=== PATIENT | female | born 1990 | race Caucasian/White ===

== ENCOUNTER 2016-06-29 06:00 | Inpatient (IN) ==
[2016-06-29] MEDS ORDERED: Metoclopramide 10 MG/2 ML VIAL IVP PRN (06:48)
[2016-06-29] MEDS ORDERED: Famotidine 20 MG/2 ML VIAL IVP PRN (06:48)
[2016-06-29] MEDS ORDERED: Naloxone 0.4 MG/ML INJ IVP PRN (06:48)
[2016-06-29] MEDS ORDERED: Ringers Solution, Lactated 1,000 ML IVC SCH (07:00)
[2016-06-29 07:27] LABS: Basophils # 0.1 K/mcL (0.0-0.2); Basophils % 0.4 %; Eosinophils # 0.1 K/mcL (0.0-0.6); Eosinophils % 0.9 %; Hematocrit 35.2 % (35.3-44.9); Hemoglobin 11.9 g/dL (11.5-15.4); Immature Granulocytes % 0.9 % (0-4); Lymphocytes # 2.3 K/mcL (0.6-4.6); Lymphocytes % 16.4 %; Mean Corpuscular HGB Conc 33.8 g/dL (31.6-35.5); Mean Corpuscular Hemoglobin 30.4 pg (28.0-33.3); Monocytes # 0.9 K/mcL (0.0-1.3); Monocytes % 6.5 %; Neutrophils # 10.4 K/mcL (1.6-8.9); Platelet Count 197 K/mcL (140-400); Red Blood Count 3.91 M/mcL (3.82-4.97); Red Cell Distribution Width 13.1 % (11.5-14.5); Segmented Neutrophils % 74.9 %
[2016-06-29] MEDS ORDERED: miSOPROStol 25 MCG TABLET VG SCH (08:00)
--- NOTE | 2016-06-29 08:06 | OB/GYN History & Physical ---
Date of Encounter: 06/29/16 Time of Encounter: 08:04 Assessment and Plan (1) 39 weeks gestation of Current visit: Yes Status: Acute Admit for IOL 25mcg Cytotec vaginally placed. (2) PUPP (pruritic urticarial papules and plaques of ) Current visit: Yes Status: Acute Patient to be induced. History of Present Illness Chief complaint: IOL HPI: Ms. Estevez is a 26 year old female at 39w1d presents to labor and delivery for induction of labor. Patient's was complicated by PUPPS. Patient reports +FM, denies LOF or vaginal bleeding. Patient reports irregular contractions. Blood type: A+, Rubella: Immune, Hep B: Negative, GBS: Negative. Past Med Surg Social Fam HX - Past Medical History Source: patient Medical history: thyroid disease Psychiatric history: no psych history - Past Surgical History Surgical History: other - Social History Smoking Status: Former smoker Smokeless Tobacco Status: No Alcohol use: none Drug use: none Occupational status: employed Current living situation: Home - Independent Activity Level: Independent ambulation Recent Out of Country Travel Within the Last 8 Weeks: No Exposure or Possible Exposure to Illness During Travel: No - Family History Mother Living Status: Still Living Hx Family Cardiac Disorders: No Hx Family Respiratory Disorders: No Hx Family Cancer: No Hx Family GI Disorders: No Hx Family Genitourinary Disorders: No Hx Family Endocrine Disorder: No Hx Family Musculoskeletal Disorders: No Hx Family Neuromuscular Disorders: No Hx Family Neurologic Disorders: No Hx Family HEENT Disorders: No Hx Family Autoimmune Disorders: No Hx Family Reproductive Disorders: No Hx Family Psychosocial Disorders: No Hx Family Medical Disorders: No Obstetrical History - Pregnancies : 1 Para: 0 Term: 0 : 0 Ab's: 0 Livin Medications and Allergies Hydrocodone/Acetaminophen [[place] 5-325 Tablet] 1 tab PO Q4H PRN #12 tab [Rx] Ibuprofen [Motrin] 600 mg PO QID #20 tab 05/31/15 [Rx] Allergies No Known Allergies Allergy (Verified 05/31/15 18:07) Review of System OB - Constitutional Constitutional ROS IM: no fever(s), no headache(s), no weakness - Cardiovascular Cardiovascular: no chest pain, no edema, no palpitations, no syncope - Respiratory Respiratory: no cough, no dyspnea - Gastrointestinal Gastrointestinal: no abdominal pain, no constipation, no diarrhea, no dyspepsia , no heartburn, no nausea, no vomiting - Genitourinary Genitourinary: no abnormal vaginal bleeding, no dysuria, no flank pain, no urinary frequency, no urinary urgency, no vaginal discharge, no vaginal odor, no vaginal pruritis Exam - Constitutional Constitutional: well developed, well nourished, no acute distress, average body habitus - HEENT HEENT: Normocephaly, Mucus Membranes Moist - Neck Neck exam: full ROM, supple - Lungs Respiratory exam: CTAB - Cardiovascular Cardiovascular exam: RRR, +S1, +S2 - Breasts Breast: bilateral: normal - Abdomen Abdomen: Present: bowel sounds normal, gravid, non tender - Extremities Extremities exam: full ROM, normal capillary refill Deep Tendon Reflex Grade: 2+ Normal - Vagina Vagina: Present: normal moisture - Cervix Dilation: 3 Effacement: 80 Station: -2 - Uterus Uterus exam: Present: normal size, normal contour - Anus/Rectum Anus/Rectum: Present: normal perianal skin (FHR 125 bpm moderate variability + 15x15 accels no decels noted. Cat. 1 tracing. ) Results Result Diagrams: 06/29/16 06:54 Abnormal lab results WBC 13.9 K/mcL (4.3-11.1) H 06/29/16 06:54 Hct 35.2 % (35.3-44.9) L 06/29/16 06:54 Neutrophils # 10.4 K/mcL (1.6-8.9) H 06/29/16 06:54 All other labs normal. - VTE Reasons for not Prescribing Prophylaxis: Treatment not Indicated - Low risk for VTE
--- NOTE | 2016-06-29 08:57 | Anesthesia Evaluation PreOp ---
Date of Encounter: 06/29/16 Time of Encounter: 08:55 - Past History Planned Operation: BELINDA Cardiac History: Denies any Significant Hx Pulmonary History: Former smoker (prepregnancy smoker 9yrs at 1/2pk/day) PROGRAM THERAPIST History: Denies Any Significant HX Other Medical History: Thyroid (thyroid goiter and partial thyroidectomy) Anesthesia History: No Prior Anesthetic Complications, Past Anesthesia (partial thyroidectomy) : Yes Alcohol Use: none Drug use: none Medications and Allergies Hydrocodone/Acetaminophen [[place] 5-325 Tablet] 1 tab PO Q4H PRN #12 tab [Rx] Ibuprofen [Motrin] 600 mg PO QID #20 tab 05/31/15 [Rx] Allergies No Known Allergies Allergy (Verified 05/31/15 18:07) - Meds/Allergy Pre-op Review Medications Reviewed: Yes Allergies Reviewed: No Beta Blockers on Current Med List: No Anesthesia Results - Labs 06/29/16 06:54 Anesthesia Exam 141/91, 93,16,99% Height: 5'8" Weight: 104Kg NPO (# of Hours): 4 Pain Scale: 1 Pain Scale Used: Numeric (1 - 10) - HEENT Pupil (Motor): Pupils equal, EOMI Mallampati: III Teeth: Normal Oral Opening: Greater than 3 - PROGRAM THERAPIST LOC: Oriented PROGRAM THERAPIST Motor: Normal RUE, Normal LUE, Normal RLE, Normal LLE, Normal Face PROGRAM THERAPIST Sensory: Normal: RUE, LUE, RLE, LLE, Face - Cardiac Rhythm: Regular Murmur: None - Pulmonary Respiratory Effort: Symmetrical Anesthesia Assess/Plan ASA Score: 2 Modified Lashawn Scale for Level of Consciousness: Cooperative, oriented, and tranquil Anesthetic Plan: Regional Monitoring Plan: Standard Monitors
--- NOTE | 2016-06-29 10:53 | OB Labor Progress Note ---
Date of Encounter: 06/29/16 Time of Encounter: 10:52 Labor Progress Note - Subjective Subjective: Pt with mild discomfort. - Cervix Cervix: 3/80/-2 - Heart Tones Heart Tones: Category I - [place]: 1.5-2.5 minutes - Interventions Interventions: AROM for small amount clear fluid. - Plan Plan: Continue to monitor. Anticipate .
[2016-06-29] MEDS ORDERED: Bupivacaine-MPF 0.25% 10 ML VIAL ONE (14:47)
[2016-06-29] MEDS ORDERED: Epidural Premix (fent/bupiv) 110 ML EP ONE ×2 (14:47→22:11)
[2016-06-29] MEDS ORDERED: *HR* FentaNYL (PF) 100 MCG/2 ML VIAL ONE (14:48)
--- NOTE | 2016-06-29 15:37 | Anesthesia Procedures ---
Date of Encounter: 06/29/16 Time of Encounter: 14:51 Procedures: Anesthesia - Epidural/Spinal Patient ID/Chart reviewed: Yes Patient examined: Yes OB Eval: Gestational age: 39 OB Eval: : 1 OB Eval: Hx Para: 0 OB Eval: Dilated at (cm): 5 OB Eval: Contractions: Non-stressed pattern Consent Obtained: Yes Supplemental Oxygen: None/Room Air Site Prep: Aseptic Technique, Sterile prep and drape, Povidone-Iodine 1% Patient position: upright Local Anesthetic: Lidocaine 1% Amount of Local Anesthetic used: 5 Touhy Needle Gauge: 18 Touhy Needle Depth (cm): 6 Catheter Depth at Skin (cm): 18 Test Dose (1.5% Lido + Epi): Volume given (mls): 3 Test Dose Result: Negative Loading Dose: 0.25% Marcaine (mls): 8 Loading Dose: Fentanyl (mcg): 100 Loading Dose Administered: Thru Catheter Infusion Med: 0.125% Bupivacaine w/ 2 mcg/ml Fentanyl Infusion Rate (mls/hr): [address]: Tegaderm, Tape Interspace Used: L3-L4 Loss of Resistance (SHRADDHA): Yes Blood: No CSF: No Paresthesia: No Vitals + FHT's: 3 Vital Signs Time 1455 1500 1505 1510 1515 1520 1525 1530 BP 140/89 140/91 142/65 141/79 143/74 136/73 128/55 132/60 Pulse 92 93 91 92 96 98 88 86 FHTs 140 140 140 140 140 140 140 140
--- NOTE | 2016-06-29 16:37 | OB Labor Progress Note ---
Date of Encounter: 06/29/16 Time of Encounter: 16:15 Labor Progress Note - Subjective Subjective: Pt comfortable with epidural - Cervix Cervix: 5/80/-1 - Heart Tones Heart Tones: Category I - [place]: 2-3 minutes - Interventions Interventions: IUPC placed. - Plan Plan: Will begin pitocin augmentation. Anticipate .
[2016-06-29] MEDS ORDERED: Oxytocin 20 units/ LR 1000 mL 20 UNIT/1,000 ML BAG IVC SCH (16:45)
--- NOTE | 2016-06-29 23:01 | OB Labor Progress Note ---
Date of Encounter: 06/29/16 Time of Encounter: 22:58 Labor Progress Note - Subjective Subjective: Patient resting comfortably with epidural in place. Pitocin on 12 milliunits. - Cervix Cervix: 8/100/0 - Heart Tones Heart Tones: 135 bpm moderate variability +15x15 accels early decels noted. - Norene Norene: 1-3 min apart - Interventions Interventions: SVE, repositioned. - Plan Plan: Continue labor management.
[2016-06-30] MEDS ORDERED: Lidocaine 1% 20 ML MDV ONE (02:56)
--- NOTE | 2016-06-30 03:52 | OB/GYN Procedure Note ---
Delivery - Delivery Date: 06/30/16 Provider: Anneliese Champion Intrapartum events: none Delivery induction: misoprostol Delivery augmentation: rupture of membranes, pitocin Delivery monitor: external FHT, external uterine, internal FHT, internal uterine Anesthesia: local, epidural Estimated Blood Loss: 300 - Infant (s) Infant A Delivery Date: 06/30/16 Infant Delivery Time: 02:52 Presentation: vertex Position: OA Gender: Male Viability: Viable Pounds: 7 Ounces: 11 Weight Gram: 3.48 kg at 1 minute: 7 at 5 mins: 9 Shoulder Dystocia: not encountered Specimens collected: cord blood Placenta: spontaneous, uterine exploration Cord: 3 umbilical vessels - Repair Episiotomy: none Laceration Description: Perineal - 2nd Degree, Labial - Complications Delivery complications: none Delivery comments: Called to LDR patient beginning to feel pressure. Patient was complete and began pushing. Delivery of viable male infant. Infant delivered OA with left arm across the neck. was placed on maternal abdomen cord was clamped and cut. taken to the warmer by nursery staff and quickly returned to mother for skin to skin. Left labial laceration was repaired with 4-0 vicryl. 1% lidocaine was used for anesthesia for 2nd degree perineal laceration. Perineal laceration was repaired with 3-0 vicryl. Patient tolerated well. Placenta delivered spontaneously. Both mother and baby are stable in LDR. - Disposition Mom disposition: stable in LDR [place] disposition: stable in LDR
[2016-06-30] MEDS ORDERED: Hydrocortisone 1% OINT 28 GM TUBE TP PRN (04:35)
[2016-06-30] MEDS ORDERED: Acetaminophen 325 MG TABLET PO PRN (04:35)
[2016-06-30] MEDS ORDERED: Lanolin 7 G OINT...G. TP PRN (04:35)
[2016-06-30] MEDS ORDERED: *HR* HYDROcodone/Acet 5/325 mg TABLET PO PRN (04:35)
[2016-06-30] MEDS ORDERED: Benzocaine/Menthol 56 GM AEROSOL SPRAY TP PRN (04:35)
[2016-06-30] MEDS ORDERED: Oxytocin 20 units/ LR 1000 mL 20 UNIT/1,000 ML BAG IVC ONE (04:35)
[2016-06-30] MEDS ORDERED: Oxytocin 20 units/ LR 1000 mL 20 UNIT/1,000 ML BAG IV SCH (04:35)
[2016-06-30] MEDS: Prenatal Vit/FA 1 EACH TABLET PO SCH (08:01)
[2016-06-30] MEDS: Ibuprofen 600 MG TABLET PO PRN ×3 (08:16→21:16)
[2016-07-01 04:18] LABS: Basophils # 0.1 K/mcL (0.0-0.2); Basophils % 0.5 %; Eosinophils # 0.2 K/mcL (0.0-0.6); Eosinophils % 1.5 %; Hematocrit 32.1 % (35.3-44.9); Hemoglobin 10.5 g/dL (11.5-15.4); Immature Granulocytes % 0.7 % (0-4); Lymphocytes # 3.6 K/mcL (0.6-4.6); Lymphocytes % 23.9 %; Mean Corpuscular HGB Conc 32.7 g/dL (31.6-35.5); Mean Corpuscular Hemoglobin 29.9 pg (28.0-33.3); Mean Corpuscular Volume 91.5 fL (83.0-100.0); Mean Platelet Volume 11.4 fL (9.4-12.4); Monocytes % 6.5 %; Neutrophils # 10.1 K/mcL (1.6-8.9); Platelet Count 178 K/mcL (140-400); Red Blood Count 3.51 M/mcL (3.82-4.97); Red Cell Distribution Width 13.5 % (11.5-14.5); Segmented Neutrophils % 66.9 %
[2016-07-01] MEDS: Ibuprofen 600 MG TABLET PO PRN (07:07)
[2016-07-01] MEDS: Prenatal Vit/FA 1 EACH TABLET PO SCH (08:47)
--- NOTE | 2016-07-01 10:13 | Discharge Summary ---
Date of Encounter: 07/01/16 Time of Encounter: 10:11 - Discharge Diagnosis (1) (normal spontaneous vaginal delivery) Priority: Primary Status: Acute Comments: Pt meeting milestones. - Discharge Medications Prescriptions: Docusate [Colace] 100 mg PO BID #60 capsule Ibuprofen [Motrin] 600 mg PO QID #60 tab Home Medications: Benzocaine/Menthol [place] [Dermoplast [place]] 1 appl TP QID PRN #0 aerosol [Rx] Breast Pump [BREAST PUMP] 1 each .ROUTE AD #1 each 07/01/16 [Rx] Docusate [Colace] 100 mg PO BID #60 capsule 07/01/16 [Rx] Ibuprofen [Motrin] 600 mg PO QID #60 tab 07/01/16 [Rx] Lanolin [Lansinoh] 1 appl TP TID PRN #0 oint...g. 07/01/16 [Rx] Allergies/Adverse Reactions: Allergies No Known Allergies Allergy (Verified 05/31/15 18:07) Data Procedures and tests throughout hospitalization: Laboratory Tests 06/29/16 07/01/16 06:54 03:40 WBC 13.9 H 15.0 H RBC 3.91 3.51 L Hgb 11.9 10.5 L Hct 35.2 L 32.1 L MCV 90.0 91.5 MCH 30.4 29.9 MCHC 33.8 32.7 RDW 13.1 13.5 Plt Count 197 178 MPV 11.0 11.4 Immature Gran % 0.9 0.7 Seg Neutrophils % 74.9 66.9 Lymphocytes % 16.4 23.9 Monocytes % 6.5 6.5 Eosinophils % 0.9 1.5 Basophils % 0.4 0.5 Neutrophils # 10.4 H 10.1 H Lymphocytes # 2.3 3.6 Monocytes # 0.9 1.0 Eosinophils # 0.1 0.2 Basophils # 0.1 0.1 Labs on day of discharge: Labs from last 24 hours 07/01/16 03:40 WBC 15.0 H RBC 3.51 L Hgb 10.5 L Hct 32.1 L MCV 91.5 MCH 29.9 MCHC 32.7 RDW 13.5 Plt Count 178 MPV 11.4 Immature Gran % 0.7 Seg Neutrophils % 66.9 Lymphocytes % 23.9 Monocytes % 6.5 Eosinophils % 1.5 Basophils % 0.5 Neutrophils # 10.1 H Lymphocytes # 3.6 Monocytes # 1.0 Eosinophils # 0.2 Basophils # 0.1 Date of admission: 06/29/16 06:22 Primary care physician: PCP NO Consults: 06/30/16 04:35 Consult to Vein Pumper [CONS] Routine Comment: Vaginal delivery, consult needed Discharging clinician: Kira Chen Anticipated date of discharge: 07/01/16 - Patient Status Disposition: Home, Self-Care Condition: Good Functional capacity at discharge: independent ambulation Overall status at discharge: patient is progressing back to baseline - Discharge Instructions Follow Up With: NO,PCP [Primary Care Provider] - Anneliese Champion CNM [Advanced Practice Nurse] - Additional Instructions: Perineal Care: Always wipe front to back Change your pad frequently Use your mirian bottle with warm water and spray front to back Do not douche, use tampons, have sexual intercourse or put anything in your vagina for 4-6 weeks after delivery Bleeding: Vaginal bleeding can last up to 6 weeks Your menstrual period may return as early as 6 weeks after you are discharged from the hospital Breana/Stitches Care: Vaginal Delivery Vaginal stitches will dissolve within 4-6 weeks Follow perineal care instructions Care Stitches will dissolve on their own If you have breana, they will need to be removed in the doctors office within 5-7 days. You may shower with stitches or breana Drip plan or soapy water over the incision to clean. Pat dry gently with a clean towel. Make sure you completely dry under the skin folds DO NOT USE powders, lotions, rubbing alcohol or hydrogen peroxide on or around your incision. This will slow your wound healing It is normal to have soreness, burning, tingling, itchiness and/or numbness as your incision heals Activity: Rest frequently Do not lift anything heavier than a gallon of milk, up to 10-15 pounds No driving for 1-2 weeks for Vaginal delivery No driving for 2-4 weeks for delivery Take stairs slowly, one at a time Gradually increase your daily activity until you are back to your normal routine Do not exercise until you have had your follow-up appointment Bathing: Take a shower daily Do not take a tub bath for the first 4 weeks Diet: Drink plenty of water and fruit juices Eat a well-balanced diet with foods high in fiber such as fruits and vegetables Depression: Your hormones have a major impact on your feelings and emotions. Hormone imbalance may cause changes in your mood, creating unfamiliar thoughts and actions. Support is available to help you understand and cope with these feelings and mood changes. If you answer yes to any of the following questions, please call your health care provider: Are you having trouble sleeping? Are you feeling isolated? Have you lost your appetite? Are you having thoughts of hurting yourself or others? WARNING SIGNS: Heavy bleeding from the vagina (blood is bright red and soaks a sanitary pad in an hour or less.) Passing a blood clot larger than your fist Discharge from the vagina that has a bad odor Temperature over 100.4 F, or if you feel cold and have chills An episiotomy site that is warm, swollen or oozing. Use a mirror if needed Urination (pee) that is painful, very red and swollen or leaking fluid An incision that is painful, very red and swollen and leaking fluid An incision that has come open Breasts that are painful or full with flu like symptoms Redness, warmth or swelling in the calf of your leg Trouble breathing, dizziness, visual disturbance or faintness *Notify your health care provider immediately or go to the nearest Emergency Room if you experience any of the above signs.* To contact the nurses station 24 hours a day, For non-urgent, routine questions, please call the office at - Diet and Activity Activity: increase activity as tolerated Diet: advance to your usual diet Hospital Course Reason for admission: induction of labor Delivery: Episiotomy: none Laceration: 2nd degree Other procedures: none complications: none Discharge diagnosis: IUP at term delivered baby: male Hospital course: - Delivery Date: 06/30/16 Provider: Anneliese Champion Intrapartum events: none Delivery induction: misoprostol Delivery augmentation: rupture of membranes, pitocin Delivery monitor: external FHT, external uterine, internal FHT, internal uterine Anesthesia: local, epidural Estimated Blood Loss: 300 - Infant (s) Infant A Infant Delivery Date: 06/30/16 Delivery Time: 02:52 Presentation: vertex Position: OA Gender: Male Viability: Viable Pounds: 7 Ounces: 11 Weight Gram: 3.48 kg at 1 minute: 7 at 5 mins: 9 Shoulder Dystocia: not encountered Specimens collected: cord blood Placenta: spontaneous, uterine exploration Cord: 3 umbilical vessels - Repair Episiotomy: none Laceration Description: Perineal - 2nd Degree, Labial - Complications Delivery complications: none - Disposition Mom disposition: home PPD#1 disposition: home with mother, Time Attestation: Total time spent providing and/or coordinating discharge services: Time Spent: Less than 30 minutes Exam - Constitutional Vitals: Temp Pulse Resp BP Pulse Ox 97.8 F 86 16 109/70 99 07/01/16 08:23 07/01/16 09:01 07/01/16 09:01 07/01/16 08:23 07/01/16 08:23 General appearance IM: A&O X 3, pleasant, no acute distress - Respiratory Respiratory exam: Present: CTAB - Cardiovascular Cardiovascular exam IM: Present: RRR, +S1, +S2 - GI/Abdominal GI/Abdominal exam IM: soft - Rectal Rectal exam: deferred - Uterine Tone: Firm Uterus Position: 1 Finger Below Umbilicus - Extremities Exam Extremities exam IM: Present: normal inspection, pedal edema (mild bilaterally) - Neurological Exam Neurological exam: normal gait, oriented X3 - Psychiatric Additional comments: reports good mood
[2016-07-01 21:31] VITALS: BP 118/78
== END 2016-07-01 12:43 | disposition home or self-care (01) | DRG 560 ==
LOC: 1NENULAB 06:22 → 1NENUOBS 06-30 06:18
PROVIDERS: ADMIT Advanced Practice Midwife; ATTEND Advanced Practice Midwife